=== PATIENT | male | born 1950 | race Caucasian/White ===

== ENCOUNTER 2020-10-04 17:20 | Inpatient (IN) | payer MEDICARE ==
[2020-10-04] MEDS ORDERED: Polyethylene Glycol 3350 17 GM Packet PO PRN (17:41)
[2020-10-04] MEDS ORDERED: Nicotine 7 MG PATCH TOP SCH (19:00)
[2020-10-04] MEDS: Nicotine 7 MG PATCH TOP SCH (20:53)
--- NOTE | 2020-10-04 21:28 | HP ---
PRIMARY CARE PHYSICIAN: Out of town. REASON FOR ADMISSION: Skilled rehab in [facility] after recent hospitalization. HISTORY OF PRESENT ILLNESS AND HOSPITAL COURSE: Mr. Smallwood is a 70-year-old male with significant history of chronic alcohol abuse, who presented to the ER on 09/28/2020 for abdominal pain and falling/imbalance. The patient reports that he has become weak and prone to falling lately prior to admission. He went to the outside ED on Wednesday after falling and was sent home and told nothing could be done. He was diagnosed with cirrhosis approximately 3 weeks ago and he does not have any specific medications for this. He has never had a paracentesis nor seen a GI doctor prior to this hospitalization. States that he noticed abdominal tenderness every now and then, over time prior to this admission. Associated symptoms include shortness of breath and cough as well as difficulty urinating, diarrhea over the last few days prior to admission. His initial home blood work in the ER showed sodium 127, total bilirubin 4.1, WBC 14, potassium 5.1, AST 84. Ammonia level 42. CT of his abdomen and pelvis revealed moderate ascites. Chest x-ray did not show any acute process and CT of the head showed chronic changes, but no acute findings. The patient was subsequently admitted for decompensated cirrhosis, fall and dizziness and hyponatremia in [facility] in [place]. He was seen by die cutter diamond and he underwent large volume paracentesis of 7 L. He was started on low-dose diuretics. The patient was reported to have signs of hypovolemia with worsening renal function and hyperkalemia that required IVF and albumin infusion which did resolve his hyperkalemia and subsequently improved his renal function. He was then restarted on a trial of diuretic as he is likely to accumulate his ascitic fluid. During his stay, he was also treated with empiric course of ceftriaxone, which was later stopped as fluid analysis was not suggestive of spontaneous bacterial peritonitis. The patient was deemed severely debilitated, thus recommended further rehab in [place] prior to going back home. When seen today, the patient was generally weak. He could hardly make steps from wheelchair to the bed. He denies chest pain, shortness of breath, or dyspnea on exertion. He is well aware that he is in [facility] bed for rehab and agreed on this. PAST MEDICAL HISTORY: 1. Chronic alcohol abuse. 2. Chronic tobacco use. 3. Recently diagnosed cirrhosis. 4. History of fall. PAST SURGICAL HISTORY: Recent paracentesis and fluid studies. SOCIAL HISTORY: The patient is single. He lives by himself in [place]. He reports daily use of beers about 15 a day. Smokes one pack per day for several years. Denies illicit drug use. ALLERGIES: TO NKDA. CURRENT MEDICATIONS: 1. Acetaminophen 650 mg q.4 hours p.r.n. 2. Furosemide 20 mg p.o. daily. 3. Nicoderm patch 14 mg per patch daily. 4. Pantoprazole 40 mg p.o. daily. 5. Polyethylene glycol 17 g p.o. daily p.r.n. 6. Spironolactone 25 mg p.o. daily. REVIEW OF SYSTEMS: GENERAL: Reports fatigue, general weakness, and loss of appetite. Denies fever and chills. HEENT: Denies acute visual changes or hearing changes. No cold symptoms. RESPIRATORY: Reports occasional cough. No bloody sputum. No pain with breathing or wheezing. CARDIAC: Denies chest pain, paroxysmal nocturnal dyspnea, palpitations, leg swelling. GASTROINTESTINAL: No nausea, vomiting, rectal bleeding, melena, hematochezia, hematemesis. Denies any diarrhea. Reports constipation and generalized abdominal pain and abdominal distention. GENITOURINARY: No dysuria, hematuria, frequency, urgency, incontinence. MUSCULOSKELETAL: Denies joint pain, joint stiffness, or myalgia. NEUROLOGIC: No focal numbness, focal weakness, seizures, tics, or tremors. SKIN: Denies pruritus or nonhealing ulcers. LABORATORY STUDIES: Recent blood work; WBC on 10/04/2020 was 11.6, hemoglobin 14, hematocrit 41.6, MCV 109, platelets 209. On 09/28/2020, INR 1.5, PT 18.3, APTT 38.6. On 09/13/2020, sodium 129, potassium 4.7, BUN 35, creatinine 1.10, estimated GFR 66, glucose 105, calcium 7.7. Urine negative on 09/28/2020. Serology: Hepatitis A and hepatitis B nonreactive. SARS-CoV-2 on 09/28/2020 not detected. 09/30/2020, paracentesis ultrasound showed successful therapeutic paracentesis with drainage of 7 L of ascites fluid, approximately 1.5 L ascites fluid sent to laboratory for analysis. ASSESSMENT AND PLAN: 1. Severe debility. 2. Decompensated cirrhosis. a. Status post paracentesis on 09/30/2020 of about 7 L. b.. Spontaneous bacterial peritonitis was ruled out. 4. Acute on chronic renal failure. 5. Hypoalbuminemia. 6. Hyponatremia, stable, asymptomatic. 7. Hyperkalemia, resolved. 8. History of chronic alcohol abuse.No withdrawal syndrome reported. 9. Tobacco abuse. 10. Unsteady gait. 11. History of fall. PLAN: 1. The patient is admitted to [facility] for rehab. 2. Refer to OT/PT. 3. Continue current medications as per list. 4. Serial electrolytes and renal function monitoring and possible adjustment of current diuretics depending on the electrolytes and kidney function. Continue close monitoring of hypovolemia and possible reaccumulation of ascitic fluid that may warrant repeat paracentesis. Will definitely report to GI as outpatient for followup. 4. GI prophylaxis with PPI. 5. DVT prophylaxis with SCD/compression stockings. 6. Further recommendations depending on the hospital course. CODE STATUS: The patient reports DNAR, which is consistent with hospital's code status. ESTIMATED LENGTH OF STAY: 2 to 3 weeks. DISPOSITION: Home per patient's request once appropriate. Job ID: [id number] [facility]
[2020-10-05 06:12] LABS: ALT (SGPT) 41 U/L (8-55); AST (SGOT) 72 U/L (5-34); Albumin 2.3 g/dL (3.4-4.8); Alkaline Phosphatase 121 U/L (40-110); Anion Gap 14 mmol/L (10-20); BUN (Urea Nitrogen) 38 mg/dL (8.4-25.7); Bilirubin, Total 2.2 mg/dL (0.2-1.2); Calc. Creatinine Clearance 39 mL/min (70-130); Calcium 7.7 mg/dL (7.8-10.44); Carbon Dioxide 19 mmol/L (23-31); Chloride 102 mmol/L (98-107); Globulin 4.3 g/dL (2.4-3.5); Glucose 118 mg/dL (80-115); Potassium 4.4 mmol/L (3.5-5.1); Protein, Total 6.6 g/dL (5.8-8.1); Sodium 131 mmol/L (136-145)
[2020-10-05] MEDS: Furosemide 20 MG TAB PO SCH (09:07)
[2020-10-05] MEDS: Spironolactone 25 MG TAB PO SCH (09:07)
[2020-10-05] MEDS: Enoxaparin Sodium 40 MG/0.4 ML SYRINGE SC SCH (20:27)
[2020-10-05] MEDS: Nicotine 7 MG PATCH TOP SCH (20:27)
[2020-10-06] MEDS: Furosemide 20 MG TAB PO SCH (09:13)
[2020-10-06] MEDS: Spironolactone 25 MG TAB PO SCH (09:13)
[2020-10-06] MEDS ORDERED: Zinc Oxide 20% Oint 30 GM TUBE TOP PRN (09:26)
[2020-10-06] MEDS: Enoxaparin Sodium 40 MG/0.4 ML SYRINGE SC SCH (20:29)
[2020-10-06] MEDS: Nicotine 7 MG PATCH TOP SCH (20:30)
[2020-10-07] MEDS: Furosemide 20 MG TAB PO SCH (08:25)
[2020-10-07] MEDS: Spironolactone 25 MG TAB PO SCH (08:25)
[2020-10-07] MEDS ORDERED: Mirtazapine 15 MG TAB PO SCH (13:30)
[2020-10-07] MEDS ORDERED: Multivitamin W/ Minerals 1 TAB PO SCH (13:30)
[2020-10-07] MEDS ORDERED: Thiamine 100 MG TAB PO SCH (13:30)
[2020-10-07] MEDS ORDERED: Folic Acid 1 MG TAB PO SCH (13:30)
[2020-10-07] MEDS ORDERED: Cyanocobalamin (Vitamin B-12) 1,000 MCG TAB PO SCH (13:30)
[2020-10-07 15:47] LABS: ALT (SGPT) 40 U/L (8-55); AST (SGOT) 69 U/L (5-34); Albumin 2.3 g/dL (3.4-4.8); Alkaline Phosphatase 95 U/L (40-110); Anion Gap 14 mmol/L (10-20); BUN (Urea Nitrogen) 55 mg/dL (8.4-25.7); Bilirubin, Total 2.9 mg/dL (0.2-1.2); Calc. Creatinine Clearance 23 mL/min (70-130); Calcium 7.5 mg/dL (7.8-10.44); Carbon Dioxide 19 mmol/L (23-31); Chloride 98 mmol/L (98-107); Globulin 4.5 g/dL (2.4-3.5); Glucose 118 mg/dL (80-115); Potassium 4.8 mmol/L (3.5-5.1); Protein, Total 6.8 g/dL (5.8-8.1); Sodium 126 mmol/L (136-145)
[2020-10-07 16:40] LABS: #Basophils 0.2 thou/uL (0.0-0.2); #Eosinphils 0.4 thou/uL (0.0-0.7); #Lymphocytes 4.2 thou/uL (1.20-3.40); #Monocytes 2.2 thou/uL (0.11-0.59); #Neutrophils 11.4 thou/uL (1.40-6.50); %Basophils 1.3 % (0.0-1.0); %Eosinophils 2.2 % (0.0-10.0); %Lymphocytes 22.5 % (21.0-51.0); %Monocytes 11.9 % (0.0-10.0); %Neutrophils 62.1 % (42.0-75.0); Anisocytosis SLIGHT = 6-15 cells (100X) (0-5/hpf); Hemoglobin 14.4 g/dL (14.0-18.0); MDiff Complete? YES; Macrocytosis SLIGHT = 6-15 cells (100X) (0-5/hpf); Mean Corpuscular HGB CONC 33.6 g/dL (32.0-36.0); Mean Corpuscular Hemoglobin 34.4 pg (27.0-31.0); Mean Corpuscular Volume 102.4 fL (78.0-98.0); Mean Platelet Volume 7.6 fL (7.4-10.4); Platelet Count 180 thou/uL (130-400); Platelet Morphology Comment Appears Adequate; RBC Distribution Width 13.5 % (11.5-14.5); Red Blood Cell (RBC) Count 4.19 mill/uL (4.70-6.10); Target Cells SLIGHT = 2-5 cells (100X) (0-1/hpf); White Blood Cell (WBC) Count 18.4 thou/uL (4.8-10.8)
[2020-10-07] MEDS ORDERED: Citalopram 20 MG TAB PO SCH (20:00)
[2020-10-07] MEDS: Enoxaparin Sodium 40 MG/0.4 ML SYRINGE SC SCH (21:05)
[2020-10-07] MEDS: Nicotine 7 MG PATCH TOP SCH (21:07)
[2020-10-07] MEDS: Mirtazapine 15 MG TAB PO SCH (21:07)
[2020-10-07] MEDS: Emollient 15 oz bottle 450 ML, Triamcinolone Acetonide 200 MG TOP PRN (21:19)
--- NOTE | 2020-10-08 07:48 | ULT ---
Sonogram abdomen complete HISTORY: Abdominal pain. No stones are apparent within the gallbladder lumen. Borderline wall thicken ing at 0.4 cm is nonspecific in the setting of diffuse ascites. Patient was reportedly tender over the entirety of the abdomen, including the gallbladder fossa. Common duct is 0.5 cm. Liver is diffusely echogenic with a nodular contour. Moderate amount of free fluid is present through out the abdomen. The spleen, kidneys, and visualized portions of abdominal aorta, IVC, and pancreas are unremarkable. IMPRESSION : Cirrhosis with moderate volume ascites. Hepato-steatosis. Diffuse abdominal tenderness. Cause not evident.
[2020-10-08] MEDS: Thiamine 100 MG TAB PO SCH (08:16)
[2020-10-08] MEDS: Multivitamin W/ Minerals 1 TAB PO SCH (08:16)
[2020-10-08] MEDS: Folic Acid 1 MG TAB PO SCH (08:17)
[2020-10-08] MEDS: Cyanocobalamin (Vitamin B-12) 1,000 MCG TAB PO SCH (08:17)
[2020-10-08 08:25] LABS: #Basophils 0.2 thou/uL (0.0-0.2); #Eosinphils 0.4 thou/uL (0.0-0.7); #Lymphocytes 4.8 thou/uL (1.20-3.40); #Monocytes 1.7 thou/uL (0.11-0.59); #Neutrophils 9.9 thou/uL (1.40-6.50); %Basophils 1.2 % (0.0-1.0); %Eosinophils 2.3 % (0.0-10.0); %Lymphocytes 28.1 % (21.0-51.0); %Monocytes 9.9 % (0.0-10.0); %Neutrophils 58.5 % (42.0-75.0); Hemoglobin 14.2 g/dL (14.0-18.0); Mean Corpuscular HGB CONC 32.1 g/dL (32.0-36.0); Mean Corpuscular Hemoglobin 33.6 pg (27.0-31.0); Mean Corpuscular Volume 104.7 fL (78.0-98.0); Platelet Count 203 thou/uL (130-400); RBC Distribution Width 13.8 % (11.5-14.5); Red Blood Cell (RBC) Count 4.23 mill/uL (4.70-6.10); White Blood Cell (WBC) Count 16.9 thou/uL (4.8-10.8)
[2020-10-08 08:49] LABS: ALT (SGPT) 41 U/L (8-55); AST (SGOT) 70 U/L (5-34); Albumin 2.4 g/dL (3.4-4.8); Alkaline Phosphatase 96 U/L (40-110); Anion Gap 15 mmol/L (10-20); BUN (Urea Nitrogen) 56 mg/dL (8.4-25.7); Bilirubin, Total 3.7 mg/dL (0.2-1.2); Calc. Creatinine Clearance 24 mL/min (70-130); Calcium 7.8 mg/dL (7.8-10.44); Carbon Dioxide 19 mmol/L (23-31); Chloride 101 mmol/L (98-107); Globulin 4.8 g/dL (2.4-3.5); Glucose 107 mg/dL (80-115); Potassium 4.7 mmol/L (3.5-5.1); Protein, Total 7.2 g/dL (5.8-8.1); Sodium 130 mmol/L (136-145)
[2020-10-08] MEDS ORDERED: Spironolactone 25 MG TAB PO SCH (12:45)
[2020-10-08] MEDS: Spironolactone 25 MG TAB PO SCH (12:56)
[2020-10-08] MEDS: Nicotine 7 MG PATCH TOP SCH (20:01)
[2020-10-08] MEDS: Enoxaparin Sodium 40 MG/0.4 ML SYRINGE SC SCH (20:01)
[2020-10-08] MEDS: Mirtazapine 15 MG TAB PO SCH (20:01)
[2020-10-09] MEDS: Multivitamin W/ Minerals 1 TAB PO SCH ×2 (08:21→13:15)
[2020-10-09] MEDS: Folic Acid 1 MG TAB PO SCH ×2 (08:21→13:14)
[2020-10-09] MEDS: Furosemide 20 MG TAB PO SCH ×2 (08:21→13:14)
[2020-10-09] MEDS: Cyanocobalamin (Vitamin B-12) 1,000 MCG TAB PO SCH ×2 (08:21→13:15)
[2020-10-09] MEDS: Thiamine 100 MG TAB PO SCH ×2 (09:12→13:15)
[2020-10-09] MEDS: Mirtazapine 15 MG TAB PO SCH (20:05)
[2020-10-09] MEDS: Enoxaparin Sodium 40 MG/0.4 ML SYRINGE SC SCH (20:05)
[2020-10-09] MEDS: Nicotine 7 MG PATCH TOP SCH (20:06)
[2020-10-10] MEDS: Thiamine 100 MG TAB PO SCH (09:22)
[2020-10-10] MEDS: Multivitamin W/ Minerals 1 TAB PO SCH (09:22)
[2020-10-10] MEDS: Furosemide 20 MG TAB PO SCH (09:22)
[2020-10-10] MEDS: Cyanocobalamin (Vitamin B-12) 1,000 MCG TAB PO SCH (09:22)
[2020-10-10] MEDS: Spironolactone 25 MG TAB PO SCH (09:22)
[2020-10-10] MEDS: Folic Acid 1 MG TAB PO SCH (09:22)
[2020-10-10] MEDS: Mirtazapine 15 MG TAB PO SCH (21:48)
[2020-10-10] MEDS: Enoxaparin Sodium 40 MG/0.4 ML SYRINGE SC SCH (21:48)
[2020-10-10] MEDS: Nicotine 7 MG PATCH TOP SCH (21:52)
[2020-10-11 07:55] LABS: Anion Gap 15 mmol/L (10-20); BUN (Urea Nitrogen) 42 mg/dL (8.4-25.7); Calc. Creatinine Clearance 27 mL/min (70-130); Calcium 7.6 mg/dL (7.8-10.44); Carbon Dioxide 19 mmol/L (23-31); Chloride 104 mmol/L (98-107); Glucose 120 mg/dL (80-115); Potassium 4.2 mmol/L (3.5-5.1); Sodium 134 mmol/L (136-145)
[2020-10-11 08:19] LABS: #Basophils 0.3 thou/uL (0.0-0.2); #Eosinphils 0.4 thou/uL (0.0-0.7); #Lymphocytes 3.8 thou/uL (1.20-3.40); #Monocytes 1.6 thou/uL (0.11-0.59); #Neutrophils 10.1 thou/uL (1.40-6.50); %Eosinophils 2.3 % (0.0-10.0); %Lymphocytes 23.6 % (21.0-51.0); %Monocytes 9.8 % (0.0-10.0); %Neutrophils 62.4 % (42.0-75.0); Eosinophils 3 % (0-10); Hemoglobin 13.9 g/dL (14.0-18.0); Lymphocytes 29 % (21-51); MDiff Complete? YES; Macrocytosis SLIGHT = 6-15 cells (100X) (0-5/hpf); Mean Corpuscular HGB CONC 33.5 g/dL (32.0-36.0); Mean Corpuscular Hemoglobin 34.6 pg (27.0-31.0); Mean Corpuscular Volume 103.3 fL (78.0-98.0); Mean Platelet Volume 7.5 fL (7.4-10.4); Monocytes 6 % (0-10); Neutrophil 62 % (42-75); Platelet Count 208 thou/uL (130-400); Platelet Morphology Comment Appears Adequate; RBC Distribution Width 13.5 % (11.5-14.5); Red Blood Cell (RBC) Count 4.02 mill/uL (4.70-6.10); Target Cells SLIGHT = 2-5 cells (100X) (0-1/hpf); White Blood Cell (WBC) Count 16.1 thou/uL (4.8-10.8)
[2020-10-11] MEDS: Cyanocobalamin (Vitamin B-12) 1,000 MCG TAB PO SCH (09:39)
[2020-10-11] MEDS: Spironolactone 25 MG TAB PO SCH (09:39)
[2020-10-11] MEDS: Multivitamin W/ Minerals 1 TAB PO SCH (09:40)
[2020-10-11] MEDS: Furosemide 20 MG TAB PO SCH (09:40)
[2020-10-11] MEDS: Folic Acid 1 MG TAB PO SCH (09:40)
[2020-10-11] MEDS: Thiamine 100 MG TAB PO SCH (09:40)
[2020-10-11] MEDS: Enoxaparin Sodium 40 MG/0.4 ML SYRINGE SC SCH (21:56)
[2020-10-11] MEDS: Nicotine 7 MG PATCH TOP SCH (21:57)
[2020-10-11] MEDS: Mirtazapine 15 MG TAB PO SCH (21:57)
[2020-10-12] MEDS: Thiamine 100 MG TAB PO SCH (09:07)
[2020-10-12] MEDS: Folic Acid 1 MG TAB PO SCH (09:07)
[2020-10-12] MEDS: Multivitamin W/ Minerals 1 TAB PO SCH (09:07)
[2020-10-12] MEDS: Furosemide 20 MG TAB PO SCH (09:07)
[2020-10-12] MEDS: Cyanocobalamin (Vitamin B-12) 1,000 MCG TAB PO SCH (09:07)
[2020-10-12] MEDS: Spironolactone 25 MG TAB PO SCH (09:08)
[2020-10-12] MEDS: Nicotine 7 MG PATCH TOP SCH (21:37)
[2020-10-12] MEDS: Mirtazapine 15 MG TAB PO SCH (21:37)
[2020-10-12] MEDS: Enoxaparin Sodium 40 MG/0.4 ML SYRINGE SC SCH (21:38)
[2020-10-13] MEDS: Folic Acid 1 MG TAB PO SCH (08:25)
[2020-10-13] MEDS: Thiamine 100 MG TAB PO SCH (08:25)
[2020-10-13] MEDS: Multivitamin W/ Minerals 1 TAB PO SCH (08:25)
[2020-10-13] MEDS: Spironolactone 25 MG TAB PO SCH (08:25)
[2020-10-13] MEDS: Furosemide 20 MG TAB PO SCH (08:25)
[2020-10-13] MEDS: Cyanocobalamin (Vitamin B-12) 1,000 MCG TAB PO SCH (08:25)
[2020-10-13] MEDS: Enoxaparin Sodium 40 MG/0.4 ML SYRINGE SC SCH (21:45)
[2020-10-13] MEDS: Mirtazapine 15 MG TAB PO SCH (21:45)
[2020-10-13] MEDS: Nicotine 7 MG PATCH TOP SCH (21:46)
[2020-10-14] MEDS: Cyanocobalamin (Vitamin B-12) 1,000 MCG TAB PO SCH (08:29)
[2020-10-14] MEDS: Multivitamin W/ Minerals 1 TAB PO SCH (08:30)
[2020-10-14] MEDS: Spironolactone 25 MG TAB PO SCH ×2 (08:30→17:55)
[2020-10-14] MEDS: Folic Acid 1 MG TAB PO SCH (08:30)
[2020-10-14] MEDS: Thiamine 100 MG TAB PO SCH (08:30)
[2020-10-14] MEDS: Furosemide 20 MG TAB PO SCH (08:30)
[2020-10-14] MEDS: Enoxaparin Sodium 40 MG/0.4 ML SYRINGE SC SCH (20:18)
[2020-10-14] MEDS: Nicotine 7 MG PATCH TOP SCH (20:18)
[2020-10-14] MEDS: Mirtazapine 15 MG TAB PO SCH (20:18)
[2020-10-15] MEDS: Emollient 15 oz bottle 450 ML, Triamcinolone Acetonide 200 MG TOP PRN (05:18)
[2020-10-15] MEDS: Thiamine 100 MG TAB PO SCH (08:18)
[2020-10-15] MEDS: Furosemide 20 MG TAB PO SCH (08:18)
[2020-10-15] MEDS: Multivitamin W/ Minerals 1 TAB PO SCH (08:18)
[2020-10-15] MEDS: Spironolactone 25 MG TAB PO SCH ×2 (08:18→17:15)
[2020-10-15] MEDS: Cyanocobalamin (Vitamin B-12) 1,000 MCG TAB PO SCH (08:18)
[2020-10-15] MEDS: Folic Acid 1 MG TAB PO SCH (08:18)
[2020-10-15 10:13] LABS: #Basophils 0.2 thou/uL (0.0-0.2); #Eosinphils 0.3 thou/uL (0.0-0.7); #Lymphocytes 4.2 thou/uL (1.20-3.40); #Monocytes 0.6 thou/uL (0.11-0.59); #Neutrophils 9.5 thou/uL (1.40-6.50); %Basophils 1.1 % (0.0-1.0); %Eosinophils 2.1 % (0.0-10.0); %Lymphocytes 28.6 % (21.0-51.0); %Monocytes 3.8 % (0.0-10.0); %Neutrophils 64.5 % (42.0-75.0); Anisocytosis SLIGHT = 6-15 cells (100X) (0-5/hpf); Hemoglobin 14.3 g/dL (14.0-18.0); Hypochromia SLIGHT = 6-15 cells (100X) (0-5/hpf); MDiff Complete? YES; Macrocytosis SLIGHT = 6-15 cells (100X) (0-5/hpf); Mean Corpuscular HGB CONC 33.7 g/dL (32.0-36.0); Mean Corpuscular Hemoglobin 34.4 pg (27.0-31.0); Mean Corpuscular Volume 102.1 fL (78.0-98.0); Mean Platelet Volume 7.1 fL (7.4-10.4); Platelet Count 241 thou/uL (130-400); Platelet Morphology Comment Appears Adequate; RBC Distribution Width 13.5 % (11.5-14.5); Red Blood Cell (RBC) Count 4.15 mill/uL (4.70-6.10); Target Cells SLIGHT = 2-5 cells (100X) (0-1/hpf); White Blood Cell (WBC) Count 14.8 thou/uL (4.8-10.8)
[2020-10-15 10:34] LABS: Anion Gap 17 mmol/L (10-20); BUN (Urea Nitrogen) 45 mg/dL (8.4-25.7); Calc. Creatinine Clearance 30 mL/min (70-130); Carbon Dioxide 15 mmol/L (23-31); Chloride 106 mmol/L (98-107); Glucose 159 mg/dL (80-115); Potassium 4.8 mmol/L (3.5-5.1); Sodium 133 mmol/L (136-145)
[2020-10-15] MEDS: Enoxaparin Sodium 40 MG/0.4 ML SYRINGE SC SCH (20:23)
[2020-10-15] MEDS: Mirtazapine 15 MG TAB PO SCH (20:24)
[2020-10-15] MEDS: Nicotine 7 MG PATCH TOP SCH (20:24)
[2020-10-15] MEDS: Acetaminophen 325 MG TAB PO PRN (20:25)
[2020-10-16] MEDS: Folic Acid 1 MG TAB PO SCH (08:28)
[2020-10-16] MEDS: Cyanocobalamin (Vitamin B-12) 1,000 MCG TAB PO SCH (08:28)
[2020-10-16] MEDS: Multivitamin W/ Minerals 1 TAB PO SCH (08:28)
[2020-10-16] MEDS: Furosemide 20 MG TAB PO SCH (08:28)
[2020-10-16] MEDS: Thiamine 100 MG TAB PO SCH (08:28)
[2020-10-16] MEDS: Spironolactone 25 MG TAB PO SCH ×2 (08:28→16:38)
[2020-10-16] MEDS: Acetaminophen 325 MG TAB PO PRN (18:30)
[2020-10-16] MEDS: Enoxaparin Sodium 40 MG/0.4 ML SYRINGE SC SCH (20:34)
[2020-10-16] MEDS: Mirtazapine 15 MG TAB PO SCH (20:35)
[2020-10-16] MEDS: Nicotine 7 MG PATCH TOP SCH (20:43)
[2020-10-17] MEDS: Spironolactone 25 MG TAB PO SCH ×2 (08:26→17:08)
[2020-10-17] MEDS: Furosemide 20 MG TAB PO SCH (08:27)
[2020-10-17] MEDS: Folic Acid 1 MG TAB PO SCH (08:27)
[2020-10-17] MEDS: Thiamine 100 MG TAB PO SCH (08:27)
[2020-10-17] MEDS: Cyanocobalamin (Vitamin B-12) 1,000 MCG TAB PO SCH (08:27)
[2020-10-17] MEDS: Multivitamin W/ Minerals 1 TAB PO SCH (08:27)
[2020-10-17] MEDS: Acetaminophen 325 MG TAB PO PRN (11:58)
[2020-10-17] MEDS: Mirtazapine 15 MG TAB PO SCH (19:58)
[2020-10-17] MEDS: Enoxaparin Sodium 40 MG/0.4 ML SYRINGE SC SCH (20:00)
[2020-10-17] MEDS: Nicotine 7 MG PATCH TOP SCH (20:05)
[2020-10-18] MEDS: Spironolactone 25 MG TAB PO SCH ×2 (08:57→17:15)
[2020-10-18] MEDS: Thiamine 100 MG TAB PO SCH (08:57)
[2020-10-18] MEDS: Furosemide 20 MG TAB PO SCH (08:57)
[2020-10-18] MEDS: Folic Acid 1 MG TAB PO SCH (08:58)
[2020-10-18] MEDS: Multivitamin W/ Minerals 1 TAB PO SCH (08:58)
[2020-10-18] MEDS: Cyanocobalamin (Vitamin B-12) 1,000 MCG TAB PO SCH (08:58)
[2020-10-18] MEDS: Nicotine 7 MG PATCH TOP SCH (20:15)
[2020-10-18] MEDS: Mirtazapine 15 MG TAB PO SCH (20:15)
[2020-10-18] MEDS: Enoxaparin Sodium 40 MG/0.4 ML SYRINGE SC SCH (20:16)
[2020-10-19] MEDS: Spironolactone 25 MG TAB PO SCH ×2 (08:36→17:05)
[2020-10-19] MEDS: Folic Acid 1 MG TAB PO SCH (08:36)
[2020-10-19] MEDS: Thiamine 100 MG TAB PO SCH (08:36)
[2020-10-19] MEDS: Furosemide 20 MG TAB PO SCH (08:36)
[2020-10-19] MEDS: Cyanocobalamin (Vitamin B-12) 1,000 MCG TAB PO SCH (08:36)
[2020-10-19] MEDS: Multivitamin W/ Minerals 1 TAB PO SCH (08:36)
[2020-10-19] MEDS: Nicotine 7 MG PATCH TOP SCH (20:40)
[2020-10-19] MEDS: Enoxaparin Sodium 40 MG/0.4 ML SYRINGE SC SCH (20:41)
[2020-10-19] MEDS: Mirtazapine 15 MG TAB PO SCH (20:41)
[2020-10-20] MEDS: Acetaminophen 325 MG TAB PO PRN ×3 (01:39→19:38)
[2020-10-20] MEDS: Spironolactone 25 MG TAB PO SCH ×2 (09:00→16:47)
[2020-10-20] MEDS: Furosemide 20 MG TAB PO SCH (09:01)
[2020-10-20] MEDS: Cyanocobalamin (Vitamin B-12) 1,000 MCG TAB PO SCH (09:01)
[2020-10-20] MEDS: Multivitamin W/ Minerals 1 TAB PO SCH (09:01)
[2020-10-20] MEDS: Thiamine 100 MG TAB PO SCH (09:01)
[2020-10-20] MEDS: Folic Acid 1 MG TAB PO SCH (09:01)
[2020-10-20] MEDS: Nicotine 7 MG PATCH TOP SCH (20:07)
[2020-10-20] MEDS: Mirtazapine 15 MG TAB PO SCH (20:07)
[2020-10-20] MEDS: Enoxaparin Sodium 40 MG/0.4 ML SYRINGE SC SCH (20:10)
[2020-10-21] MEDS: Acetaminophen 325 MG TAB PO PRN ×2 (05:27→19:49)
[2020-10-21 06:35] LABS: ALT (SGPT) 27 U/L (8-55); AST (SGOT) 50 U/L (5-34); Albumin 2.1 g/dL (3.4-4.8); Alkaline Phosphatase 103 U/L (40-110); Anion Gap 13 mmol/L (10-20); BUN (Urea Nitrogen) 36 mg/dL (8.4-25.7); Bilirubin, Total 1.4 mg/dL (0.2-1.2); Calc. Creatinine Clearance 39 mL/min (70-130); Calcium 7.9 mg/dL (7.8-10.44); Carbon Dioxide 19 mmol/L (23-31); Chloride 109 mmol/L (98-107); Glucose 105 mg/dL (80-115); Protein, Total 6.1 g/dL (5.8-8.1); Sodium 136 mmol/L (136-145)
[2020-10-21 07:10] LABS: Hemoglobin 12.9 g/dL (14.0-18.0); Mean Corpuscular HGB CONC 32.6 g/dL (32.0-36.0); Mean Corpuscular Hemoglobin 33.8 pg (27.0-31.0); Red Blood Cell (RBC) Count 3.81 mill/uL (4.70-6.10); White Blood Cell (WBC) Count 13.1 thou/uL (4.8-10.8)
[2020-10-21 07:11] LABS: #Basophils 0.3 thou/uL (0.0-0.2); #Eosinphils 0.5 thou/uL (0.0-0.7); #Monocytes 1.7 thou/uL (0.11-0.59); #Neutrophils 5.7 thou/uL (1.40-6.50); %Basophils 1.9 % (0.0-1.0); %Eosinophils 3.7 % (0.0-10.0); %Monocytes 12.9 % (0.0-10.0); %Neutrophils 43.5 % (42.0-75.0); Mean Platelet Volume 6.7 fL (7.4-10.4); Platelet Count 288 thou/uL (130-400); RBC Distribution Width 14.2 % (11.5-14.5)
[2020-10-21 07:13] LABS: Anisocytosis SLIGHT = 6-15 cells (100X) (0-5/hpf); Macrocytosis SLIGHT = 6-15 cells (100X) (0-5/hpf); Poikilocytosis SLIGHT = 6-15 cells (100X) (0-5/hpf)
[2020-10-21 07:14] LABS: Platelet Morphology Comment Appears Adequate; Target Cells SLIGHT = 2-5 cells (100X) (0-1/hpf)
[2020-10-21] MEDS: Cyanocobalamin (Vitamin B-12) 1,000 MCG TAB PO SCH (08:14)
[2020-10-21] MEDS: Thiamine 100 MG TAB PO SCH (08:14)
[2020-10-21] MEDS: Multivitamin W/ Minerals 1 TAB PO SCH (08:14)
[2020-10-21] MEDS: Furosemide 20 MG TAB PO SCH (08:14)
[2020-10-21] MEDS: Folic Acid 1 MG TAB PO SCH (08:14)
[2020-10-21] MEDS: Spironolactone 25 MG TAB PO SCH ×2 (08:14→17:30)
[2020-10-21] MEDS: Nicotine 7 MG PATCH TOP SCH (20:11)
[2020-10-21] MEDS: Mirtazapine 15 MG TAB PO SCH (20:11)
[2020-10-22] MEDS: Spironolactone 25 MG TAB PO SCH ×2 (08:14→17:23)
[2020-10-22] MEDS: Folic Acid 1 MG TAB PO SCH (08:14)
[2020-10-22] MEDS: Cyanocobalamin (Vitamin B-12) 1,000 MCG TAB PO SCH (08:14)
[2020-10-22] MEDS: Multivitamin W/ Minerals 1 TAB PO SCH (08:14)
[2020-10-22] MEDS: Furosemide 20 MG TAB PO SCH (08:14)
[2020-10-22] MEDS: Thiamine 100 MG TAB PO SCH (08:14)
[2020-10-22] MEDS: Acetaminophen 325 MG TAB PO PRN ×2 (15:37→20:23)
--- NOTE | 2020-10-22 18:38 | PRG ---
DATE OF SERVICE: 10/22/2020 SUBJECTIVE: The patient was seen and examined at the bedside in no distress. He does report continued abdominal pain related to abdominal distention from ascites. Otherwise, denies any fevers or chills. Denies chest pain or shortness of breath. OBJECTIVE: VITAL SIGNS: Temperature 97.9, pulse 93, respirations 16, oxygen 97% on room air, blood pressure 130/69. GENERAL: The patient is alert and oriented x3, in no apparent distress. The patient is chronically ill-appearing. HEENT: Normocephalic, atraumatic. Extraocular muscles intact. Moist mucous membranes. CARDIOVASCULAR: Regular rate and rhythm. No murmurs, rubs, or gallops. LUNGS: Clear to auscultation bilaterally. No crackles, wheezes, rhonchi. ABDOMEN: Soft, very very significant/severe distention. Mild tenderness to palpation. No rebound tenderness. No guarding. EXTREMITIES: Decreased bulk and tone. NEUROLOGIC: Cranial nerves 2-12 intact grossly. PSYCHIATRIC: The patient does appear to have depressed mood. Answers questions appropriately. Normal speech pattern. LABORATORY DATA: Labs complete metabolic panel, sodium 136, potassium 5.0, chloride 109, carbon dioxide 19, BUN 36, creatinine 1.39, glucose 105, bilirubin 1.4, AST 50. ASSESSMENT AND PLAN: 1. Physical deconditioning. 2. Decompensated cirrhosis with ascites. 3. [id number] renal failure. 4. Hypoalbuminemia. 5. History of chronic alcohol abuse. 6. Depression. PLAN: Regarding patient's decompensated cirrhosis with ascites, the patient is scheduled for ultrasound-guided paracentesis tomorrow. We will make him n.p.o. after 5:00 a.m. in preparation for this procedure. We will also plan to administer albumin as needed. We will continue Lasix and spironolactone. We will also check a comprehensive metabolic panel routinely in order to assess for metabolic derangements. Regarding patient's history of depression, we will plan to increase mirtazapine which will hopefully also help with his appetite. We will continue multivitamins to assist with the patient's malnutrition from chronic alcohol use. Continue physical therapy for patient's physical debility. The patient ultimately would like to go home, however, did mention the possibility of being admitted to assisted living facility. We will monitor this. Job ID: [id number]
[2020-10-22] MEDS: Mirtazapine 15 MG TAB PO SCH (20:15)
[2020-10-22] MEDS: Nicotine 7 MG PATCH TOP SCH (20:15)
[2020-10-23 07:17] LABS: ALT (SGPT) 20 U/L (8-55); AST (SGOT) 37 U/L (5-34); Albumin 2.4 g/dL (3.4-4.8); Alkaline Phosphatase 70 U/L (40-110); Anion Gap 13 mmol/L (10-20); BUN (Urea Nitrogen) 33 mg/dL (8.4-25.7); Bilirubin, Total 1.7 mg/dL (0.2-1.2); Calc. Creatinine Clearance 43 mL/min (70-130); Carbon Dioxide 19 mmol/L (23-31); Chloride 109 mmol/L (98-107); Globulin 3.3 g/dL (2.4-3.5); Glucose 105 mg/dL (80-115); Potassium 5.1 mmol/L (3.5-5.1); Protein, Total 5.7 g/dL (5.8-8.1); Sodium 136 mmol/L (136-145)
[2020-10-23] MEDS: Folic Acid 1 MG TAB PO SCH (09:39)
[2020-10-23] MEDS: Spironolactone 25 MG TAB PO SCH ×2 (09:39→17:21)
[2020-10-23] MEDS: Cyanocobalamin (Vitamin B-12) 1,000 MCG TAB PO SCH (09:39)
[2020-10-23] MEDS: Thiamine 100 MG TAB PO SCH (09:39)
[2020-10-23] MEDS: Multivitamin W/ Minerals 1 TAB PO SCH (09:39)
[2020-10-23] MEDS: Acetaminophen 325 MG TAB PO PRN ×2 (09:39→17:21)
[2020-10-23] MEDS: Furosemide 20 MG TAB PO SCH (09:39)
[2020-10-23] MEDS: Nicotine 7 MG PATCH TOP SCH (20:16)
[2020-10-23] MEDS: Mirtazapine 15 MG TAB PO SCH (20:16)
[2020-10-24] MEDS: Spironolactone 25 MG TAB PO SCH ×2 (08:16→17:26)
[2020-10-24] MEDS: Acetaminophen 325 MG TAB PO PRN ×2 (08:16→20:46)
[2020-10-24] MEDS: Cyanocobalamin (Vitamin B-12) 1,000 MCG TAB PO SCH (08:17)
[2020-10-24] MEDS: Folic Acid 1 MG TAB PO SCH (08:17)
[2020-10-24] MEDS: Furosemide 20 MG TAB PO SCH (08:17)
[2020-10-24] MEDS: Thiamine 100 MG TAB PO SCH (08:17)
[2020-10-24] MEDS: Multivitamin W/ Minerals 1 TAB PO SCH (08:17)
[2020-10-24] MEDS: Nicotine 7 MG PATCH TOP SCH (20:47)
[2020-10-24] MEDS: Mirtazapine 15 MG TAB PO SCH (20:47)
[2020-10-25] MEDS: Cyanocobalamin (Vitamin B-12) 1,000 MCG TAB PO SCH (08:47)
[2020-10-25] MEDS: Furosemide 20 MG TAB PO SCH (08:47)
[2020-10-25] MEDS: Thiamine 100 MG TAB PO SCH (08:47)
[2020-10-25] MEDS: Folic Acid 1 MG TAB PO SCH (08:47)
[2020-10-25] MEDS: Spironolactone 25 MG TAB PO SCH ×2 (08:47→17:15)
[2020-10-25] MEDS: Multivitamin W/ Minerals 1 TAB PO SCH (08:47)
[2020-10-25] MEDS: Mirtazapine 15 MG TAB PO SCH (20:11)
[2020-10-25] MEDS: Nicotine 7 MG PATCH TOP SCH (20:12)
[2020-10-25] MEDS: Emollient 15 oz bottle 450 ML, Triamcinolone Acetonide 200 MG TOP PRN (20:16)
[2020-10-25] MEDS: Acetaminophen 325 MG TAB PO PRN (23:21)
[2020-10-26] MEDS: Folic Acid 1 MG TAB PO SCH (08:16)
[2020-10-26] MEDS: Cyanocobalamin (Vitamin B-12) 1,000 MCG TAB PO SCH (08:16)
[2020-10-26] MEDS: Thiamine 100 MG TAB PO SCH (08:16)
[2020-10-26] MEDS: Furosemide 20 MG TAB PO SCH (08:16)
[2020-10-26] MEDS: Acetaminophen 325 MG TAB PO PRN ×2 (08:17→18:48)
[2020-10-26] MEDS: Multivitamin W/ Minerals 1 TAB PO SCH (08:17)
[2020-10-26] MEDS: Spironolactone 25 MG TAB PO SCH ×2 (08:17→17:53)
[2020-10-26] MEDS: Emollient 15 oz bottle 450 ML, Triamcinolone Acetonide 200 MG TOP PRN (08:21)
[2020-10-26] MEDS: Mirtazapine 15 MG TAB PO SCH (21:15)
[2020-10-26] MEDS: Nicotine 7 MG PATCH TOP SCH (21:18)
[2020-10-27] MEDS: Multivitamin W/ Minerals 1 TAB PO SCH (08:25)
[2020-10-27] MEDS: Spironolactone 25 MG TAB PO SCH ×2 (08:25→17:10)
[2020-10-27] MEDS: Thiamine 100 MG TAB PO SCH (08:25)
[2020-10-27] MEDS: Folic Acid 1 MG TAB PO SCH (08:25)
[2020-10-27] MEDS: Furosemide 20 MG TAB PO SCH (08:25)
[2020-10-27] MEDS: Cyanocobalamin (Vitamin B-12) 1,000 MCG TAB PO SCH (08:25)
[2020-10-27] MEDS: Acetaminophen 325 MG TAB PO PRN ×3 (08:25→21:56)
[2020-10-27] MEDS: Emollient 15 oz bottle 450 ML, Triamcinolone Acetonide 200 MG TOP PRN (08:27)
[2020-10-27] MEDS: Mirtazapine 15 MG TAB PO SCH (21:01)
[2020-10-27] MEDS: Nicotine 7 MG PATCH TOP SCH (21:02)
[2020-10-28] MEDS: Multivitamin W/ Minerals 1 TAB PO SCH (08:11)
[2020-10-28] MEDS: Furosemide 20 MG TAB PO SCH (08:11)
[2020-10-28] MEDS: Folic Acid 1 MG TAB PO SCH (08:11)
[2020-10-28] MEDS: Cyanocobalamin (Vitamin B-12) 1,000 MCG TAB PO SCH (08:11)
[2020-10-28] MEDS: Spironolactone 25 MG TAB PO SCH ×2 (08:11→17:06)
[2020-10-28] MEDS: Thiamine 100 MG TAB PO SCH (08:12)
[2020-10-28] MEDS: Acetaminophen 325 MG TAB PO PRN (18:37)
[2020-10-28] MEDS: Nicotine 7 MG PATCH TOP SCH (20:23)
[2020-10-28] MEDS: Mirtazapine 15 MG TAB PO SCH (20:23)
[2020-10-29] MEDS: Acetaminophen 325 MG TAB PO PRN ×3 (03:53→23:24)
[2020-10-29] MEDS: Spironolactone 25 MG TAB PO SCH ×2 (08:35→17:23)
[2020-10-29] MEDS: Furosemide 20 MG TAB PO SCH (08:36)
[2020-10-29] MEDS: Thiamine 100 MG TAB PO SCH (08:36)
[2020-10-29] MEDS: Folic Acid 1 MG TAB PO SCH (08:36)
[2020-10-29] MEDS: Cyanocobalamin (Vitamin B-12) 1,000 MCG TAB PO SCH (08:36)
[2020-10-29] MEDS: Multivitamin W/ Minerals 1 TAB PO SCH (08:36)
[2020-10-29] MEDS: Mirtazapine 15 MG TAB PO SCH (20:34)
[2020-10-29] MEDS: Nicotine 7 MG PATCH TOP SCH (21:00)
[2020-10-30] MEDS: Spironolactone 25 MG TAB PO SCH ×2 (08:31→17:10)
[2020-10-30] MEDS: Multivitamin W/ Minerals 1 TAB PO SCH (08:32)
[2020-10-30] MEDS: Cyanocobalamin (Vitamin B-12) 1,000 MCG TAB PO SCH (08:32)
[2020-10-30] MEDS: Folic Acid 1 MG TAB PO SCH (08:32)
[2020-10-30] MEDS: Thiamine 100 MG TAB PO SCH (08:32)
[2020-10-30] MEDS: Furosemide 20 MG TAB PO SCH (08:32)
[2020-10-30] MEDS: Acetaminophen 325 MG TAB PO PRN ×3 (08:38→20:35)
[2020-10-30] MEDS: Mirtazapine 15 MG TAB PO SCH (20:36)
[2020-10-30] MEDS: Nicotine 7 MG PATCH TOP SCH (20:39)
[2020-10-31 06:16] LABS: INR-International Normal Ratio 1.3; PTT 39.5 sec (22.9-36.1)
[2020-10-31] MEDS: Spironolactone 25 MG TAB PO SCH ×2 (08:42→17:28)
[2020-10-31] MEDS: Folic Acid 1 MG TAB PO SCH (08:42)
[2020-10-31] MEDS: Furosemide 20 MG TAB PO SCH (08:42)
[2020-10-31] MEDS: Thiamine 100 MG TAB PO SCH (08:42)
[2020-10-31] MEDS: Cyanocobalamin (Vitamin B-12) 1,000 MCG TAB PO SCH (08:42)
[2020-10-31] MEDS: Multivitamin W/ Minerals 1 TAB PO SCH (08:43)
[2020-10-31] MEDS: Acetaminophen 325 MG TAB PO PRN ×2 (10:48→20:11)
[2020-10-31] MEDS: Nicotine 7 MG PATCH TOP SCH (20:09)
[2020-10-31] MEDS: Mirtazapine 15 MG TAB PO SCH (20:11)
[2020-11-01] MEDS: Acetaminophen 325 MG TAB PO PRN ×2 (05:23→19:43)
[2020-11-01 05:36] LABS: Anion Gap 12 mmol/L (10-20); BUN (Urea Nitrogen) 31 mg/dL (8.4-25.7); Calc. Creatinine Clearance 52 mL/min (70-130); Carbon Dioxide 19 mmol/L (23-31); Chloride 112 mmol/L (98-107); Glucose 117 mg/dL (80-115); Potassium 4.4 mmol/L (3.5-5.1); Sodium 139 mmol/L (136-145)
[2020-11-01] MEDS: Furosemide 20 MG TAB PO SCH (08:17)
[2020-11-01] MEDS: Cyanocobalamin (Vitamin B-12) 1,000 MCG TAB PO SCH (08:17)
[2020-11-01] MEDS: Spironolactone 25 MG TAB PO SCH ×2 (08:17→17:07)
[2020-11-01] MEDS: Thiamine 100 MG TAB PO SCH (08:17)
[2020-11-01] MEDS: Multivitamin W/ Minerals 1 TAB PO SCH (08:17)
[2020-11-01] MEDS: Folic Acid 1 MG TAB PO SCH (08:17)
[2020-11-01] MEDS: Mirtazapine 15 MG TAB PO SCH (21:15)
[2020-11-01] MEDS: Nicotine 7 MG PATCH TOP SCH (21:16)
[2020-11-02] MEDS: Thiamine 100 MG TAB PO SCH (09:02)
[2020-11-02] MEDS: Multivitamin W/ Minerals 1 TAB PO SCH (09:02)
[2020-11-02] MEDS: Furosemide 20 MG TAB PO SCH (09:02)
[2020-11-02] MEDS: Spironolactone 25 MG TAB PO SCH ×2 (09:02→17:21)
[2020-11-02] MEDS: Folic Acid 1 MG TAB PO SCH (09:02)
[2020-11-02] MEDS: Cyanocobalamin (Vitamin B-12) 1,000 MCG TAB PO SCH (09:02)
[2020-11-02] MEDS: Acetaminophen 325 MG TAB PO PRN ×2 (09:15→20:03)
[2020-11-02] MEDS: Nicotine 7 MG PATCH TOP SCH (20:05)
[2020-11-02] MEDS: Mirtazapine 15 MG TAB PO SCH (20:05)
[2020-11-03] MEDS: Acetaminophen 325 MG TAB PO PRN ×4 (01:12→23:20)
[2020-11-03] MEDS: Cyanocobalamin (Vitamin B-12) 1,000 MCG TAB PO SCH (08:13)
[2020-11-03] MEDS: Multivitamin W/ Minerals 1 TAB PO SCH (08:13)
[2020-11-03] MEDS: Spironolactone 25 MG TAB PO SCH ×2 (08:13→17:22)
[2020-11-03] MEDS: Furosemide 20 MG TAB PO SCH (08:13)
[2020-11-03] MEDS: Folic Acid 1 MG TAB PO SCH (08:14)
[2020-11-03] MEDS: Thiamine 100 MG TAB PO SCH (08:14)
[2020-11-03] MEDS: Mirtazapine 15 MG TAB PO SCH (20:01)
[2020-11-03] MEDS: Nicotine 7 MG PATCH TOP SCH (20:01)
[2020-11-04] MEDS: Folic Acid 1 MG TAB PO SCH (08:56)
[2020-11-04] MEDS: Spironolactone 25 MG TAB PO SCH ×2 (08:56→17:27)
[2020-11-04] MEDS: Furosemide 20 MG TAB PO SCH (08:56)
[2020-11-04] MEDS: Cyanocobalamin (Vitamin B-12) 1,000 MCG TAB PO SCH (08:56)
[2020-11-04] MEDS: Multivitamin W/ Minerals 1 TAB PO SCH (08:56)
[2020-11-04] MEDS: Thiamine 100 MG TAB PO SCH (08:56)
[2020-11-04] MEDS: Nicotine 7 MG PATCH TOP SCH (20:39)
[2020-11-04] MEDS: Acetaminophen 325 MG TAB PO PRN (20:40)
[2020-11-04] MEDS: Mirtazapine 15 MG TAB PO SCH (20:42)
[2020-11-05] MEDS ORDERED: Ibuprofen 600 MG TAB PO SCH (06:45)
[2020-11-05] MEDS: Spironolactone 25 MG TAB PO SCH ×2 (08:42→16:48)
[2020-11-05] MEDS: Cyanocobalamin (Vitamin B-12) 1,000 MCG TAB PO SCH (08:43)
[2020-11-05] MEDS: Multivitamin W/ Minerals 1 TAB PO SCH (08:43)
[2020-11-05] MEDS: Thiamine 100 MG TAB PO SCH (08:43)
[2020-11-05] MEDS: Furosemide 20 MG TAB PO SCH (08:43)
[2020-11-05] MEDS: Folic Acid 1 MG TAB PO SCH (08:43)
[2020-11-05] MEDS: Acetaminophen 325 MG TAB PO PRN (20:21)
[2020-11-05] MEDS: Mirtazapine 15 MG TAB PO SCH (20:21)
[2020-11-05] MEDS: Nicotine 7 MG PATCH TOP SCH (20:21)
[2020-11-06] MEDS: Folic Acid 1 MG TAB PO SCH (08:40)
[2020-11-06] MEDS: Thiamine 100 MG TAB PO SCH (08:40)
[2020-11-06] MEDS: Spironolactone 25 MG TAB PO SCH ×2 (08:40→17:18)
[2020-11-06] MEDS: Cyanocobalamin (Vitamin B-12) 1,000 MCG TAB PO SCH (08:40)
[2020-11-06] MEDS: Multivitamin W/ Minerals 1 TAB PO SCH (08:40)
[2020-11-06] MEDS: Furosemide 20 MG TAB PO SCH (08:41)
[2020-11-06] MEDS: Mirtazapine 15 MG TAB PO SCH (20:59)
[2020-11-06] MEDS: Nicotine 7 MG PATCH TOP SCH (21:03)
[2020-11-06] MEDS: Acetaminophen 325 MG TAB PO PRN (21:11)
[2020-11-07] MEDS: Folic Acid 1 MG TAB PO SCH (08:44)
[2020-11-07] MEDS: Cyanocobalamin (Vitamin B-12) 1,000 MCG TAB PO SCH (08:44)
[2020-11-07] MEDS: Spironolactone 25 MG TAB PO SCH ×2 (08:44→17:16)
[2020-11-07] MEDS: Furosemide 20 MG TAB PO SCH (08:45)
[2020-11-07] MEDS: Thiamine 100 MG TAB PO SCH (08:45)
[2020-11-07] MEDS: Multivitamin W/ Minerals 1 TAB PO SCH (08:45)
[2020-11-07] MEDS: Acetaminophen 325 MG TAB PO PRN ×2 (15:11→22:35)
[2020-11-07] MEDS: Mirtazapine 15 MG TAB PO SCH (20:24)
[2020-11-07] MEDS: Nicotine 7 MG PATCH TOP SCH (20:24)
[2020-11-08] MEDS: Acetaminophen 325 MG TAB PO PRN ×3 (09:07→21:09)
[2020-11-08] MEDS: Spironolactone 25 MG TAB PO SCH ×2 (09:07→17:58)
[2020-11-08] MEDS: Thiamine 100 MG TAB PO SCH (09:08)
[2020-11-08] MEDS: Cyanocobalamin (Vitamin B-12) 1,000 MCG TAB PO SCH (09:08)
[2020-11-08] MEDS: Multivitamin W/ Minerals 1 TAB PO SCH (09:08)
[2020-11-08] MEDS: Furosemide 20 MG TAB PO SCH (09:08)
[2020-11-08] MEDS: Folic Acid 1 MG TAB PO SCH (09:08)
[2020-11-08] MEDS: Emollient 15 oz bottle 450 ML, Triamcinolone Acetonide 200 MG TOP PRN ×2 (09:11→21:22)
[2020-11-08] MEDS: Nicotine 7 MG PATCH TOP SCH (21:08)
[2020-11-08] MEDS: Mirtazapine 15 MG TAB PO SCH (21:08)
[2020-11-09] MEDS: Spironolactone 25 MG TAB PO SCH ×2 (08:27→16:50)
[2020-11-09] MEDS: Furosemide 20 MG TAB PO SCH (08:27)
[2020-11-09] MEDS: Cyanocobalamin (Vitamin B-12) 1,000 MCG TAB PO SCH (08:27)
[2020-11-09] MEDS: Multivitamin W/ Minerals 1 TAB PO SCH (08:27)
[2020-11-09] MEDS: Thiamine 100 MG TAB PO SCH (08:27)
[2020-11-09] MEDS: Folic Acid 1 MG TAB PO SCH (08:27)
[2020-11-09] MEDS: Acetaminophen 325 MG TAB PO PRN ×2 (11:46→21:56)
[2020-11-09] MEDS: Nicotine 7 MG PATCH TOP SCH (21:55)
[2020-11-09] MEDS: Mirtazapine 15 MG TAB PO SCH (21:56)
[2020-11-10] MEDS: Multivitamin W/ Minerals 1 TAB PO SCH (08:17)
[2020-11-10] MEDS: Spironolactone 25 MG TAB PO SCH ×2 (08:17→16:56)
[2020-11-10] MEDS: Folic Acid 1 MG TAB PO SCH (08:17)
[2020-11-10] MEDS: Thiamine 100 MG TAB PO SCH (08:17)
[2020-11-10] MEDS: Furosemide 20 MG TAB PO SCH (08:17)
[2020-11-10] MEDS: Cyanocobalamin (Vitamin B-12) 1,000 MCG TAB PO SCH (08:17)
[2020-11-10] MEDS: Acetaminophen 325 MG TAB PO PRN ×2 (15:03→20:56)
[2020-11-10] MEDS: Mirtazapine 15 MG TAB PO SCH (20:55)
[2020-11-10] MEDS: Nicotine 7 MG PATCH TOP SCH (20:55)
[2020-11-11] MEDS: Thiamine 100 MG TAB PO SCH (08:11)
[2020-11-11] MEDS: Folic Acid 1 MG TAB PO SCH (08:11)
[2020-11-11] MEDS: Furosemide 20 MG TAB PO SCH (08:11)
[2020-11-11] MEDS: Spironolactone 25 MG TAB PO SCH ×2 (08:11→17:15)
[2020-11-11] MEDS: Acetaminophen 325 MG TAB PO PRN ×3 (08:12→21:24)
[2020-11-11] MEDS: Cyanocobalamin (Vitamin B-12) 1,000 MCG TAB PO SCH (08:12)
[2020-11-11] MEDS: Multivitamin W/ Minerals 1 TAB PO SCH (08:12)
[2020-11-11] MEDS: Nicotine 7 MG PATCH TOP SCH (21:24)
[2020-11-11] MEDS: Mirtazapine 15 MG TAB PO SCH (21:26)
[2020-11-12] MEDS: Thiamine 100 MG TAB PO SCH (08:40)
[2020-11-12] MEDS: Folic Acid 1 MG TAB PO SCH (08:40)
[2020-11-12] MEDS: Spironolactone 25 MG TAB PO SCH ×2 (08:40→16:53)
[2020-11-12] MEDS: Cyanocobalamin (Vitamin B-12) 1,000 MCG TAB PO SCH (08:40)
[2020-11-12] MEDS: Furosemide 20 MG TAB PO SCH (08:40)
[2020-11-12] MEDS: Multivitamin W/ Minerals 1 TAB PO SCH (08:40)
[2020-11-12] MEDS: Mirtazapine 15 MG TAB PO SCH (20:52)
[2020-11-12] MEDS: Nicotine 7 MG PATCH TOP SCH (20:52)
[2020-11-12] MEDS: Acetaminophen 325 MG TAB PO PRN (20:54)
[2020-11-13] MEDS: Spironolactone 25 MG TAB PO SCH ×2 (08:16→16:59)
[2020-11-13] MEDS: Multivitamin W/ Minerals 1 TAB PO SCH (08:16)
[2020-11-13] MEDS: Folic Acid 1 MG TAB PO SCH (08:16)
[2020-11-13] MEDS: Thiamine 100 MG TAB PO SCH (08:16)
[2020-11-13] MEDS: Furosemide 20 MG TAB PO SCH (08:16)
[2020-11-13] MEDS: Cyanocobalamin (Vitamin B-12) 1,000 MCG TAB PO SCH (08:16)
[2020-11-13] MEDS: Acetaminophen 325 MG TAB PO PRN (22:28)
[2020-11-13] MEDS: Nicotine 7 MG PATCH TOP SCH (22:29)
[2020-11-13] MEDS: Mirtazapine 15 MG TAB PO SCH (22:29)
[2020-11-14] MEDS: Thiamine 100 MG TAB PO SCH (09:04)
[2020-11-14] MEDS: Cyanocobalamin (Vitamin B-12) 1,000 MCG TAB PO SCH (09:04)
[2020-11-14] MEDS: Furosemide 20 MG TAB PO SCH (09:04)
[2020-11-14] MEDS: Multivitamin W/ Minerals 1 TAB PO SCH (09:04)
[2020-11-14] MEDS: Spironolactone 25 MG TAB PO SCH ×2 (09:04→17:18)
[2020-11-14] MEDS: Folic Acid 1 MG TAB PO SCH (09:04)
[2020-11-14] MEDS: Acetaminophen 325 MG TAB PO PRN (09:07)
[2020-11-14] MEDS: Mirtazapine 15 MG TAB PO SCH (21:37)
[2020-11-14] MEDS: Nicotine 7 MG PATCH TOP SCH (21:38)
[2020-11-15] MEDS: Spironolactone 25 MG TAB PO SCH ×2 (08:37→16:56)
[2020-11-15] MEDS: Cyanocobalamin (Vitamin B-12) 1,000 MCG TAB PO SCH (08:38)
[2020-11-15] MEDS: Thiamine 100 MG TAB PO SCH (08:38)
[2020-11-15] MEDS: Furosemide 20 MG TAB PO SCH (08:38)
[2020-11-15] MEDS: Multivitamin W/ Minerals 1 TAB PO SCH (08:38)
[2020-11-15] MEDS: Folic Acid 1 MG TAB PO SCH (08:38)
[2020-11-15] MEDS: Acetaminophen 325 MG TAB PO PRN ×2 (14:32→18:32)
[2020-11-15] MEDS: Nicotine 7 MG PATCH TOP SCH (20:50)
[2020-11-15] MEDS: Mirtazapine 15 MG TAB PO SCH (20:50)
[2020-11-16] MEDS: Thiamine 100 MG TAB PO SCH (09:08)
[2020-11-16] MEDS: Multivitamin W/ Minerals 1 TAB PO SCH (09:08)
[2020-11-16] MEDS: Spironolactone 25 MG TAB PO SCH ×2 (09:08→17:15)
[2020-11-16] MEDS: Furosemide 20 MG TAB PO SCH (09:08)
[2020-11-16] MEDS: Cyanocobalamin (Vitamin B-12) 1,000 MCG TAB PO SCH (09:08)
[2020-11-16] MEDS: Folic Acid 1 MG TAB PO SCH (09:08)
[2020-11-16] MEDS: Acetaminophen 325 MG TAB PO PRN (19:15)
[2020-11-16] MEDS: Nicotine 7 MG PATCH TOP SCH (20:24)
[2020-11-16] MEDS: Mirtazapine 15 MG TAB PO SCH (20:25)
[2020-11-17] MEDS: Multivitamin W/ Minerals 1 TAB PO SCH (08:39)
[2020-11-17] MEDS: Folic Acid 1 MG TAB PO SCH (08:39)
[2020-11-17] MEDS: Furosemide 20 MG TAB PO SCH (08:39)
[2020-11-17] MEDS: Cyanocobalamin (Vitamin B-12) 1,000 MCG TAB PO SCH (08:39)
[2020-11-17] MEDS: Spironolactone 25 MG TAB PO SCH ×2 (08:39→17:13)
[2020-11-17] MEDS: Thiamine 100 MG TAB PO SCH (08:39)
[2020-11-17] MEDS: Acetaminophen 325 MG TAB PO PRN (17:13)
[2020-11-17] MEDS: Nicotine 7 MG PATCH TOP SCH (20:26)
[2020-11-17] MEDS: Mirtazapine 15 MG TAB PO SCH (20:26)
[2020-11-18 05:46] LABS: #Basophils 0.2 thou/uL (0.0-0.2); #Eosinphils 0.3 thou/uL (0.0-0.7); #Monocytes 1.4 thou/uL (0.11-0.59); #Neutrophils 6.9 thou/uL (1.40-6.50); %Basophils 1.7 % (0.0-1.0); %Eosinophils 2.5 % (0.0-10.0); %Lymphocytes 36.2 % (21.0-51.0); %Monocytes 9.9 % (0.0-10.0); %Neutrophils 49.7 % (42.0-75.0); Mean Corpuscular HGB CONC 33.2 g/dL (32.0-36.0); Mean Corpuscular Hemoglobin 33.7 pg (27.0-31.0); Mean Corpuscular Volume 101.6 fL (78.0-98.0); Mean Platelet Volume 7.9 fL (7.4-10.4); Platelet Count 342 thou/uL (130-400); RBC Distribution Width 12.8 % (11.5-14.5); Red Blood Cell (RBC) Count 3.87 mill/uL (4.70-6.10); White Blood Cell (WBC) Count 13.8 thou/uL (4.8-10.8)
[2020-11-18 06:06] LABS: ALT (SGPT) 22 U/L (8-55); AST (SGOT) 35 U/L (5-34); Albumin 2.5 g/dL (3.4-4.8); Alkaline Phosphatase 76 U/L (40-110); Anion Gap 11 mmol/L (10-20); BUN (Urea Nitrogen) 26 mg/dL (8.4-25.7); Bilirubin, Total 1.1 mg/dL (0.2-1.2); Calc. Creatinine Clearance 65 mL/min (70-130); Calcium 8.4 mg/dL (7.8-10.44); Carbon Dioxide 22 mmol/L (23-31); Chloride 111 mmol/L (98-107); Globulin 3.7 g/dL (2.4-3.5); Glucose 103 mg/dL (80-115); Protein, Total 6.2 g/dL (5.8-8.1); Sodium 139 mmol/L (136-145)
[2020-11-18] MEDS: Spironolactone 25 MG TAB PO SCH (09:01)
[2020-11-18] MEDS: Multivitamin W/ Minerals 1 TAB PO SCH (09:02)
[2020-11-18] MEDS: Thiamine 100 MG TAB PO SCH (09:02)
[2020-11-18] MEDS: Furosemide 20 MG TAB PO SCH ×2 (09:02→14:50)
[2020-11-18] MEDS: Folic Acid 1 MG TAB PO SCH (09:02)
[2020-11-18] MEDS: Cyanocobalamin (Vitamin B-12) 1,000 MCG TAB PO SCH (09:02)
[2020-11-18] MEDS: Acetaminophen 325 MG TAB PO PRN ×3 (09:04→21:13)
[2020-11-18] MEDS: Mirtazapine 15 MG TAB PO SCH (21:12)
[2020-11-18] MEDS: Nicotine 7 MG PATCH TOP SCH (21:20)
[2020-11-19] MEDS: Cyanocobalamin (Vitamin B-12) 1,000 MCG TAB PO SCH (08:30)
[2020-11-19] MEDS: Multivitamin W/ Minerals 1 TAB PO SCH (08:30)
[2020-11-19] MEDS: Furosemide 20 MG TAB PO SCH ×2 (08:30→13:58)
[2020-11-19] MEDS: Folic Acid 1 MG TAB PO SCH (08:31)
[2020-11-19] MEDS: Spironolactone 25 MG TAB PO SCH (08:31)
[2020-11-19] MEDS: Thiamine 100 MG TAB PO SCH (08:31)
[2020-11-19] MEDS: Acetaminophen 325 MG TAB PO PRN ×2 (14:01→19:27)
[2020-11-19] MEDS: Mirtazapine 15 MG TAB PO SCH (20:48)
[2020-11-19] MEDS: Nicotine 7 MG PATCH TOP SCH (20:48)
[2020-11-20] MEDS: Thiamine 100 MG TAB PO SCH (08:11)
[2020-11-20] MEDS: Folic Acid 1 MG TAB PO SCH (08:12)
[2020-11-20] MEDS: Cyanocobalamin (Vitamin B-12) 1,000 MCG TAB PO SCH (08:12)
[2020-11-20] MEDS: Multivitamin W/ Minerals 1 TAB PO SCH (08:12)
[2020-11-20] MEDS: Spironolactone 25 MG TAB PO SCH (08:12)
[2020-11-20] MEDS: Furosemide 20 MG TAB PO SCH ×2 (08:12→14:11)
[2020-11-20] MEDS: Acetaminophen 325 MG TAB PO PRN ×3 (08:14→20:17)
[2020-11-20] MEDS ORDERED: Albumin 25% 0 ML ONE (10:55)
[2020-11-20] MEDS ORDERED: Sodium Bicarbonate 2.5 MEQ/5 ML VIAL ONE (10:55)
[2020-11-20] MEDS ORDERED: Lidocaine 1% PF 5 ML VIAL ONE (10:55)
[2020-11-20] MEDS: Mirtazapine 15 MG TAB PO SCH (20:19)
[2020-11-20] MEDS: Nicotine 7 MG PATCH TOP SCH (20:19)
[2020-11-21] MEDS: Spironolactone 25 MG TAB PO SCH (08:42)
[2020-11-21] MEDS: Multivitamin W/ Minerals 1 TAB PO SCH (08:42)
[2020-11-21] MEDS: Furosemide 20 MG TAB PO SCH ×2 (08:42→13:26)
[2020-11-21] MEDS: Thiamine 100 MG TAB PO SCH (08:42)
[2020-11-21] MEDS: Acetaminophen 325 MG TAB PO PRN ×3 (08:42→20:41)
[2020-11-21] MEDS: Folic Acid 1 MG TAB PO SCH (08:42)
[2020-11-21] MEDS: Cyanocobalamin (Vitamin B-12) 1,000 MCG TAB PO SCH (08:42)
[2020-11-21] MEDS: Nicotine 7 MG PATCH TOP SCH (20:39)
[2020-11-21] MEDS: Mirtazapine 15 MG TAB PO SCH (20:41)
[2020-11-22] MEDS: Furosemide 20 MG TAB PO SCH ×2 (08:12→14:17)
[2020-11-22] MEDS: Thiamine 100 MG TAB PO SCH (08:12)
[2020-11-22] MEDS: Cyanocobalamin (Vitamin B-12) 1,000 MCG TAB PO SCH (08:12)
[2020-11-22] MEDS: Multivitamin W/ Minerals 1 TAB PO SCH (08:12)
[2020-11-22] MEDS: Folic Acid 1 MG TAB PO SCH (08:12)
[2020-11-22] MEDS: Spironolactone 25 MG TAB PO SCH (08:12)
[2020-11-22] MEDS: Acetaminophen 325 MG TAB PO PRN ×3 (08:15→20:46)
[2020-11-22] MEDS: Nicotine 7 MG PATCH TD SCH (20:45)
[2020-11-22] MEDS: Mirtazapine 15 MG TAB PO SCH (20:45)
[2020-11-23] MEDS ORDERED: predniSONE 20 MG TAB PO SCH ×2 (08:00)
[2020-11-23] MEDS: Multivitamin W/ Minerals 1 TAB PO SCH (08:26)
[2020-11-23] MEDS: Thiamine 100 MG TAB PO SCH (08:26)
[2020-11-23] MEDS: Folic Acid 1 MG TAB PO SCH (08:26)
[2020-11-23] MEDS: Furosemide 20 MG TAB PO SCH ×2 (08:26→13:20)
[2020-11-23] MEDS: Cyanocobalamin (Vitamin B-12) 1,000 MCG TAB PO SCH (08:26)
[2020-11-23] MEDS: Spironolactone 25 MG TAB PO SCH (08:26)
[2020-11-23] MEDS: Acetaminophen 325 MG TAB PO PRN ×2 (08:29→20:24)
[2020-11-23] MEDS: Mirtazapine 15 MG TAB PO SCH (20:25)
[2020-11-23] MEDS: Nicotine 7 MG PATCH TD SCH (20:26)
[2020-11-24] MEDS: Folic Acid 1 MG TAB PO SCH (08:04)
[2020-11-24] MEDS: Multivitamin W/ Minerals 1 TAB PO SCH (08:04)
[2020-11-24] MEDS: Furosemide 20 MG TAB PO SCH ×2 (08:04→14:55)
[2020-11-24] MEDS: Cyanocobalamin (Vitamin B-12) 1,000 MCG TAB PO SCH (08:04)
[2020-11-24] MEDS: Thiamine 100 MG TAB PO SCH (08:04)
[2020-11-24] MEDS: Spironolactone 25 MG TAB PO SCH (08:04)
[2020-11-24] MEDS: Acetaminophen 325 MG TAB PO PRN ×3 (08:06→20:11)
[2020-11-24] MEDS: Mirtazapine 15 MG TAB PO SCH (20:11)
[2020-11-24] MEDS: Nicotine 7 MG PATCH TD SCH (20:13)
[2020-11-25] MEDS ORDERED: predniSONE 20 MG TAB PO SCH (08:00)
[2020-11-25] MEDS: Furosemide 20 MG TAB PO SCH ×2 (08:24→13:12)
[2020-11-25] MEDS: Cyanocobalamin (Vitamin B-12) 1,000 MCG TAB PO SCH (08:24)
[2020-11-25] MEDS: Multivitamin W/ Minerals 1 TAB PO SCH (08:24)
[2020-11-25] MEDS: Acetaminophen 325 MG TAB PO PRN ×3 (08:24→19:22)
[2020-11-25] MEDS: Spironolactone 25 MG TAB PO SCH (08:24)
[2020-11-25] MEDS: Folic Acid 1 MG TAB PO SCH (08:24)
[2020-11-25] MEDS: Thiamine 100 MG TAB PO SCH (08:30)
[2020-11-25] MEDS: Nicotine 7 MG PATCH TD SCH (20:20)
[2020-11-25] MEDS: Mirtazapine 15 MG TAB PO SCH (20:20)
[2020-11-26] MEDS: Acetaminophen 325 MG TAB PO PRN ×4 (05:36→20:31)
[2020-11-26] MEDS: Spironolactone 25 MG TAB PO SCH (08:37)
[2020-11-26] MEDS: Cyanocobalamin (Vitamin B-12) 1,000 MCG TAB PO SCH (08:37)
[2020-11-26] MEDS: Multivitamin W/ Minerals 1 TAB PO SCH (08:37)
[2020-11-26] MEDS: Folic Acid 1 MG TAB PO SCH (08:37)
[2020-11-26] MEDS: Furosemide 20 MG TAB PO SCH ×2 (08:37→13:33)
[2020-11-26] MEDS: Thiamine 100 MG TAB PO SCH (08:37)
[2020-11-26] MEDS ORDERED: Simethicone Chewable 80 MG TAB PO PRN (14:33)
[2020-11-26] MEDS: Mirtazapine 15 MG TAB PO SCH (20:30)
[2020-11-26] MEDS: Nicotine 7 MG PATCH TD SCH (20:30)
[2020-11-27 08:16] LABS: Anion Gap 13 mmol/L (10-20); BUN (Urea Nitrogen) 22 mg/dL (8.4-25.7); Calc. Creatinine Clearance 67 mL/min (70-130); Calcium 8.3 mg/dL (7.8-10.44); Carbon Dioxide 22 mmol/L (23-31); Chloride 108 mmol/L (98-107); Glucose 99 mg/dL (80-115); Potassium 4.5 mmol/L (3.5-5.1); Sodium 138 mmol/L (136-145)
[2020-11-27] MEDS: Thiamine 100 MG TAB PO SCH (08:16)
[2020-11-27] MEDS: Spironolactone 25 MG TAB PO SCH (08:16)
[2020-11-27] MEDS: Furosemide 20 MG TAB PO SCH ×2 (08:16→14:14)
[2020-11-27] MEDS: Cyanocobalamin (Vitamin B-12) 1,000 MCG TAB PO SCH (08:16)
[2020-11-27] MEDS: Multivitamin W/ Minerals 1 TAB PO SCH (08:16)
[2020-11-27] MEDS: Folic Acid 1 MG TAB PO SCH (08:16)
[2020-11-27] MEDS: Acetaminophen 325 MG TAB PO PRN ×2 (08:17→14:14)
[2020-11-27] MEDS ORDERED: Lidocaine 1% PF 5 ML VIAL ONE (10:22)
[2020-11-27] MEDS ORDERED: Sodium Bicarbonate 2.5 MEQ/5 ML VIAL ONE (10:22)
[2020-11-27] MEDS ORDERED: Albumin 25% 100 ML ONE (10:22)
[2020-11-27] MEDS: Nicotine 7 MG PATCH TD SCH (20:13)
[2020-11-27] MEDS: Mirtazapine 15 MG TAB PO SCH (20:13)
[2020-11-27] MEDS: Emollient 15 oz bottle 450 ML, Triamcinolone Acetonide 200 MG TOP PRN (20:17)
[2020-11-28] MEDS ORDERED: predniSONE 20 MG TAB PO SCH (08:00)
[2020-11-28] MEDS: Cyanocobalamin (Vitamin B-12) 1,000 MCG TAB PO SCH (08:01)
[2020-11-28] MEDS: Furosemide 20 MG TAB PO SCH ×2 (08:01→13:26)
[2020-11-28] MEDS: Folic Acid 1 MG TAB PO SCH (08:01)
[2020-11-28] MEDS: Acetaminophen 325 MG TAB PO PRN ×3 (08:01→20:55)
[2020-11-28] MEDS: Spironolactone 25 MG TAB PO SCH (08:01)
[2020-11-28] MEDS: Multivitamin W/ Minerals 1 TAB PO SCH (08:01)
[2020-11-28] MEDS: Thiamine 100 MG TAB PO SCH (08:01)
[2020-11-28] MEDS: Mirtazapine 15 MG TAB PO SCH (20:46)
[2020-11-28] MEDS: Nicotine 7 MG PATCH TD SCH (20:48)
[2020-11-29] MEDS: Furosemide 20 MG TAB PO SCH ×2 (08:03→15:24)
[2020-11-29] MEDS: Multivitamin W/ Minerals 1 TAB PO SCH (08:03)
[2020-11-29] MEDS: Spironolactone 25 MG TAB PO SCH (08:03)
[2020-11-29] MEDS: Acetaminophen 325 MG TAB PO PRN ×2 (08:03→17:49)
[2020-11-29] MEDS: Cyanocobalamin (Vitamin B-12) 1,000 MCG TAB PO SCH (08:05)
[2020-11-29] MEDS: Thiamine 100 MG TAB PO SCH (08:06)
[2020-11-29] MEDS: Folic Acid 1 MG TAB PO SCH (08:06)
[2020-11-29] MEDS: Emollient 15 oz bottle 450 ML, Triamcinolone Acetonide 200 MG TOP PRN ×2 (17:53→20:31)
[2020-11-29] MEDS: Mirtazapine 15 MG TAB PO SCH (20:27)
[2020-11-29] MEDS: Nicotine 7 MG PATCH TD SCH (20:27)
[2020-11-30] MEDS: Spironolactone 25 MG TAB PO SCH (09:02)
[2020-11-30] MEDS: Cyanocobalamin (Vitamin B-12) 1,000 MCG TAB PO SCH (09:02)
[2020-11-30] MEDS: Multivitamin W/ Minerals 1 TAB PO SCH (09:03)
[2020-11-30] MEDS: Furosemide 20 MG TAB PO SCH ×2 (09:03→13:55)
[2020-11-30] MEDS: Acetaminophen 325 MG TAB PO PRN ×3 (09:03→20:39)
[2020-11-30] MEDS: Thiamine 100 MG TAB PO SCH (09:03)
[2020-11-30] MEDS: Folic Acid 1 MG TAB PO SCH (09:03)
[2020-11-30] MEDS: Mirtazapine 15 MG TAB PO SCH (20:40)
[2020-11-30] MEDS: Nicotine 7 MG PATCH TD SCH (20:41)
[2020-12-01] MEDS ORDERED: predniSONE 20 MG TAB PO SCH (08:00)
[2020-12-01] MEDS: Furosemide 20 MG TAB PO SCH ×2 (08:41→14:59)
[2020-12-01] MEDS: Folic Acid 1 MG TAB PO SCH (08:41)
[2020-12-01] MEDS: Multivitamin W/ Minerals 1 TAB PO SCH (08:41)
[2020-12-01] MEDS: Cyanocobalamin (Vitamin B-12) 1,000 MCG TAB PO SCH (08:41)
[2020-12-01] MEDS: Spironolactone 25 MG TAB PO SCH (08:41)
[2020-12-01] MEDS: Thiamine 100 MG TAB PO SCH (08:41)
[2020-12-01] MEDS: Acetaminophen 325 MG TAB PO PRN ×3 (08:52→19:41)
[2020-12-01] MEDS: Mirtazapine 15 MG TAB PO SCH (21:32)
[2020-12-01] MEDS: Nicotine 7 MG PATCH TD SCH (21:32)
[2020-12-02] MEDS: Multivitamin W/ Minerals 1 TAB PO SCH (08:52)
[2020-12-02] MEDS: Thiamine 100 MG TAB PO SCH (08:52)
[2020-12-02] MEDS: Furosemide 20 MG TAB PO SCH ×2 (08:52→14:19)
[2020-12-02] MEDS: Acetaminophen 325 MG TAB PO PRN ×4 (08:52→21:15)
[2020-12-02] MEDS: Spironolactone 25 MG TAB PO SCH (08:52)
[2020-12-02] MEDS: Cyanocobalamin (Vitamin B-12) 1,000 MCG TAB PO SCH (08:52)
[2020-12-02] MEDS: Folic Acid 1 MG TAB PO SCH (08:52)
[2020-12-02 10:15] LABS: SARS-CoV-2 NAA Rapid Test Not Detected (NotDetected)
[2020-12-02 10:25] VITALS: BMI 20.9
[2020-12-02 13:02] LABS: Hemoglobin 12.6 g/dL (14.0-18.0); Mean Corpuscular HGB CONC 32.7 g/dL (32.0-36.0); Mean Corpuscular Hemoglobin 32.9 pg (27.0-31.0); Mean Corpuscular Volume 100.7 fL (78.0-98.0); Mean Platelet Volume 7.3 fL (7.4-10.4); Platelet Count 410 thou/uL (130-400); RBC Distribution Width 12.4 % (11.5-14.5); Red Blood Cell (RBC) Count 3.83 mill/uL (4.70-6.10)
[2020-12-02 13:03] LABS: Lactic Acid 1.2 mmol/L (0.5-2.2)
[2020-12-02 13:07] LABS: AST (SGOT) 37 U/L (5-34); Albumin 2.4 g/dL (3.4-4.8); Alkaline Phosphatase 86 U/L (40-110); Anion Gap 12 mmol/L (10-20); BUN (Urea Nitrogen) 24 mg/dL (8.4-25.7); Bilirubin, Total 0.8 mg/dL (0.2-1.2); Calc. Creatinine Clearance 67 mL/min (70-130); Calcium 8.3 mg/dL (7.8-10.44); Carbon Dioxide 20 mmol/L (23-31); Chloride 110 mmol/L (98-107); Glucose 105 mg/dL (80-115); Potassium 4.6 mmol/L (3.5-5.1); Protein, Total 6.4 g/dL (5.8-8.1); Sodium 137 mmol/L (136-145)
[2020-12-02 13:39] LABS: Band 1 % (5-11); Lymphocytes 35 % (21-51)
[2020-12-02 13:40] LABS: Anisocytosis SLIGHT = 6-15 cells (100X) (0-5/hpf); Monocytes 7 % (0-10); Neutrophil 57 % (42-75); Platelet Morphology Comment Appears Adequate
[2020-12-02 14:00] LABS: ALT (SGPT) 19 U/L (8-55)
[2020-12-02 14:04] LABS: Bilirubin Negative (Negative); Blood, Urine Negative (Negative); Clarity Clear (Clear); Glucose, Urine (Dipstick) Negative (Negative); Ketone, Urine Negative (Negative); Leukocyte Negative (Negative); Nitrite Negative (Negative); Protein, Urine (Dipstick) Negative (Neg-Trace); Urobilinogen 0.2 mg/dL (Less than 2); pH, Urine 5.5 (5.0-9.0)
[2020-12-02 14:06] LABS: Urine Culture Reflex No No
[2020-12-02] MEDS: Nicotine 7 MG PATCH TD SCH (21:14)
[2020-12-02] MEDS: Mirtazapine 15 MG TAB PO SCH (21:15)
[2020-12-03] MEDS: Acetaminophen 325 MG TAB PO PRN ×4 (01:08→19:37)
[2020-12-03] MEDS: Folic Acid 1 MG TAB PO SCH (08:05)
[2020-12-03] MEDS: Spironolactone 25 MG TAB PO SCH (08:05)
[2020-12-03] MEDS: Thiamine 100 MG TAB PO SCH (08:05)
[2020-12-03] MEDS: Furosemide 20 MG TAB PO SCH ×2 (08:05→14:24)
[2020-12-03] MEDS: Cyanocobalamin (Vitamin B-12) 1,000 MCG TAB PO SCH (08:05)
[2020-12-03] MEDS: Multivitamin W/ Minerals 1 TAB PO SCH (08:05)
[2020-12-03] MEDS: Mirtazapine 15 MG TAB PO SCH (20:46)
[2020-12-03] MEDS: Nicotine 7 MG PATCH TD SCH (20:46)
[2020-12-04] MEDS ORDERED: predniSONE 5 MG TAB PO SCH (08:00)
[2020-12-04] MEDS: Furosemide 20 MG TAB PO SCH ×2 (08:25→13:18)
[2020-12-04] MEDS: Acetaminophen 325 MG TAB PO PRN ×2 (08:25→17:55)
[2020-12-04] MEDS: Spironolactone 25 MG TAB PO SCH (08:25)
[2020-12-04] MEDS: Thiamine 100 MG TAB PO SCH (08:26)
[2020-12-04] MEDS: Multivitamin W/ Minerals 1 TAB PO SCH (08:26)
[2020-12-04] MEDS: Cyanocobalamin (Vitamin B-12) 1,000 MCG TAB PO SCH (08:26)
[2020-12-04] MEDS: Folic Acid 1 MG TAB PO SCH (08:26)
[2020-12-04] MEDS: Mirtazapine 15 MG TAB PO SCH (20:10)
[2020-12-04] MEDS: Nicotine 7 MG PATCH TD SCH (20:10)
[2020-12-05] MEDS: Cyanocobalamin (Vitamin B-12) 1,000 MCG TAB PO SCH (08:59)
[2020-12-05] MEDS: Furosemide 20 MG TAB PO SCH ×4 (08:59→14:56)
[2020-12-05] MEDS: Folic Acid 1 MG TAB PO SCH (08:59)
[2020-12-05] MEDS: Multivitamin W/ Minerals 1 TAB PO SCH (08:59)
[2020-12-05] MEDS: Thiamine 100 MG TAB PO SCH (08:59)
[2020-12-05] MEDS: Acetaminophen 325 MG TAB PO PRN (08:59)
[2020-12-05] MEDS: Spironolactone 25 MG TAB PO SCH (08:59)
[2020-12-05 09:04] VITALS: BP 144/80; TEMP 98.5
--- NOTE | 2020-12-06 16:16 | PQF ---
CLINICAL DOCUMENTATION CLARIFICATION FORM: Dear : Noemy Castro MD Date / Time: 12/06/2020 Please exercise your independent, professional judgment in responding to the clarification form. Clinical indicators are provided on the bottom of this form for your review Please check appropriate box(es): [ ] Protein Calorie Malnutrition: [ ] Mild [ ] Moderate [ ] Severe [ ] Other Malnutrition (please specify) [ ] Underweight without malnutrition [ ] Cachexia [ ] Other diagnosis (Please specify if any) [ ] Unable to determine In addition, please specify: Present on Admission (POA): [ ] Yes [ ] No [ ] Unable to determine Physician Signature: Date/Time: For continuity of documentation, please document condition throughout progress notes and discharge summary. Thank You. To be completed by CDI/Coding staff for physician review: Present Clinical Indicators - Signs / Symptoms / Labs Results and Location in Medical Record [x] Malnutrition, Failure to Thrive, Cachexia Progress notes on 10/22 [x] BMI of 20.9 Registered dietitian on 12/02 Two or More of the Following ASPEN Criteria: [ ] Unintentional Insufficient Energy Intake [ ] Weight Loss [x] Temporal muscl, fat & muscle wasting Registered dietitian on 12/02 [x] Albumin-2.1 Laboratory on 10/21 [x] Calcium 7.5L Laboratory on 10/07 [ ] Diminished Handgrip Strength Present Risk Factors Results and Location in Medical Record [ ] Change in appetite / nausea / vomiting / diarrhea [ ] Inability to consume adequate caloric intake [x] Chronic illness , cirrhosis H&P on 10/04 [x] Aged person 70 yrs H&P on 10/04 [ ] PEG tube [ ] Short gut syndrome Present Treatments Results and Location in Medical Record [x] Dietary consult Registered dietitian on 12/02 [x] We will continue multivitamins to assist with the patient malnutrition Progress notes on 10/22 [x] Multivitamin 1tab Po Medication on 10/07 [ ] Assistance with feeding [ ] Appetite stimulant - medication CDS/Casual Shoe Inspector Signature: AAS Phone #: Date/Time: 12/06/2020 Moderate Malnutrition (in acute illness) ? Energy Intake: <75% of estimated energy requirement for > 7 days ? Weight Loss: 1-2%/1 week; 5%/ 1 month; 7.5%/3 months ? Other: mild body fat loss; mild muscle mass loss; mild fluid accumulation; Severe Malnutrition (in acute illness) ? Energy Intake: ? 50% of estimated energy requirement for ? 5 days ? Weight Loss: >2%/1 week; >5%/1 month; >7.5%/3 months ? Other: moderate body fat loss; moderate muscle mass loss; moderate- severe fluid accumulation; measurably reduced set decorator strength Moderate Malnutrition (in chronic illness) ? Energy Intake: <75% of estimated energy requirement for ?1 month ? Weight Loss: 5%/1 month; 7.5%/3 months; 10%/6 months; 20%/1 year ? Other: mild body fat loss; mild muscle mass loss; mild fluid accumulation Severe Malnutrition (in chronic illness) ? Energy Intake: ?75% of estimated energy requirement for ?1 month ? Weight Loss: >5%/1 month; >7.5%/3 months; >10%/6 months; >20%/1 year ? Other: severe body fat loss; severe muscle mass loss; severe fluid accumulation; measurably reduced set decorator strength This is a permanent part of the Medical Record MTDD
--- NOTE | 2020-12-13 15:14 | DIS ---
DATE OF ADMISSION: 10/04/2020 DATE OF DISCHARGE: 12/05/2020 REASON FOR ADMISSION: Deconditioning, general weakness after recent hospitalization. FINAL DIAGNOSES: 1. Decompensated liver cirrhosis with ascites. 2. Alcoholic cirrhosis with ascites requiring paracentesis q.weekly. 3. Hypoalbuminemia. 4. Depression and anxiety. 5. Hypertension. 6. Hyponatremia, chronic, asymptomatic. 7. Hyperkalemia, resolved. 8. Physical deconditioning. 9. Unsteady gait. 10. History of fall. 11. History of chronic tobacco use. 12. History of chronic alcohol abuse. 13. Anorexia with weight loss, stable. DISPOSITION: Home with family in [place], pending senior care placement approval. CONDITION ON DISCHARGE: Stable. DISCHARGE INSTRUCTIONS: 1. Continue paracentesis at [facility] every Wednesday as scheduled. 2. Continue albumin supplement every paracentesis appointment. To give 3 g per 3 L of ascitic fluid aspirated. 3. Diet, regular. 4. Activity, to use rolling walker at all times. Fall precautions. 5. Follow up with new PCP in [place], Dr. Presley Mcdaniels on 12/24/2020, at 8:30 a.m. 6. Follow up with Dr. Stanley Edwards, logistics program manager on 12/26/2020 at 1420 hours. MEDICATIONS: 1. Spironolactone 50 mg p.o. q.a.m. 2. Folic acid 1 mg p.o. daily. 3. Furosemide 20 mg p.o. b.i.d. at 9 a.m. and 2 p.m. 4. Polyethylene glycol 17 g p.o. daily p.r.n. for constipation. 5. 7 mg transdermal at 8 p.m. to complete 30-day course. 6. Pantoprazole 40 mg p.o. daily. 7. Mirtazapine 15 mg p.o. daily. 8. Thiamine 100 mg p.o. daily. HISTORY OF PRESENT ILLNESS AND HOSPITAL COURSE: Mr. Smallwood is a 70-year-old male with significant history of chronic alcohol abuse, chronic tobacco use, who presented initially at [facility] for abdominal pain, falling, and imbalance. The patient had been generally weak prior to admission. The patient was diagnosed with cirrhosis approximately few weeks before this admission. He had never been on any medicine nor seen a GI doctor prior to the hospitalization. On further examination at [facility], CT of his abdomen and pelvis revealed moderate ascites. Chest x-ray did not show any acute processes. CT of the head showed chronic changes, but no acute findings. The patient was subsequently admitted and treated appropriately under the consultation of logistics program manager. He has had the initial paracentesis [facility]. He was started on low-dose diuretics. He also received an albumin infusion and IVF hydration. Eventually, his acute renal injury has improved. He was maintained on low-dose diuretic and subsequently transferred to [facility] secondary to severe debility. In [place], the patient had marked improvement with his overall functional status and mobility. He was walking more than 200+ feet using his rolling walker prior to discharge. During his rehab course, he was also noted to have anorexia with significant weight loss, depressive symptoms, and anxiety. The patient was started on low-dose mirtazapine. His overall appetite and oral consumption markedly improved prior to discharge and overall mood significantly improved as well. While in rehab, the patient continued to have evidence of volume overload requiring paracentesis in a weekly basis. He will continue paracentesis as scheduled every Wednesday at [facility] until further recommendations from the logistics program manager. The patient's sister, Breanne, who serves as the patient's MPOA/surrogate decision maker has been involved in the patient's care throughout the course. It was a mutual decision of the patient and the family that he needs to go to senior care as nobody could take care of the patient at home. After waiting for several weeks, the patient had a hard time getting senior care placement as the options are very limited to the place where his sister lives. It was then the mutual decision of the family that the patient will go home to cousin's place in [place] and cousin with the spouse will be taking care of the patient, pending senior care placement in [place], [place], where his sister lives. Overall, his blood pressure tolerated his current diuretics. He is on both spironolactone and Lasix. He will complete his for another 15 days while at home. He is recommended to continue nutritional supplements including folic acid, thiamine, and multivitamins. We have arranged followup appointments with GI and new PCP in [place] per patient's family's request. On 12/05/2020, the patient was discharged in a stable condition. The weekly paracentesis schedule was arranged every Wednesday at [facility]. Prescription for outpatient procedure has been faxed to [facility] prior to discharge. Vital signs prior to discharge; blood pressure 144/80, temperature 98.5, pulse 94, respirations 18, O2 saturation 97% on room air. Weight 126 pounds and 2 ounces. Height 5 feet 5 inches. Time spent on this discharge, 35 minutes in examining the patient, coordinating care. Job ID: [id number]
== END 2020-12-05 16:05 | disposition home or self-care (01) | DRG 948 ==
LOC: MADMS 17:20
PROVIDERS: ADMIT Family Medicine; ATTEND Family Medicine
DX: R53.81 Other malaise (principal); N17.9 Acute kidney failure, unspecified; E87.1 Hypo-osmolality and hyponatremia; R18.8 Other ascites; E46 Unspecified protein-calorie malnutrition; Z66 Do not resuscitate; F10.10 Alcohol abuse, uncomplicated; F17.200 Nicotine dependence, unspecified, uncomplicated; E87.5 Hyperkalemia; E88.09 Other disorders of plasma-protein metabolism, not elsewhere classified; R26.81 Unsteadiness on feet; F32.9 Major depressive disorder, single episode, unspecified; K74.60 Unspecified cirrhosis of liver; Z20.822 Contact with and (suspected) exposure to COVID-19; Z79.899 Other long term (current) drug therapy; Z68.21 Body mass index [BMI] 21.0-21.9, adult; N18.9 Chronic kidney disease, unspecified; D72.829 Elevated white blood cell count, unspecified; F41.9 Anxiety disorder, unspecified
CPT/HCPCS: 0240U; 36415; 80048; 80053; 81001; 82140; 83605; 85007; 85025; 85027; 85610; 85730; 87040; 93975; J1650; J3301; P9047

== ENCOUNTER 2022-03-09 11:07 | Emergency (ER) | payer MEDICARE ==
[2022-03-09] MEDS ORDERED: Morphine 4 MG/ML VIAL ONE ×2 (11:41→14:30)
[2022-03-09 11:47] LABS: #Basophils 0.2 thou/uL (0.0-0.2); #Eosinphils 0.5 thou/uL (0.0-0.7); #Lymphocytes 4.2 thou/uL (1.20-3.40); #Monocytes 0.7 thou/uL (0.11-0.59); #Neutrophils 7.4 thou/uL (1.40-6.50); %Basophils 1.4 % (0.0-1.0); %Eosinophils 3.7 % (0.0-10.0); %Lymphocytes 32.5 % (21.0-51.0); %Monocytes 5.1 % (0.0-10.0); %Neutrophils 57.3 % (42.0-75.0); Hemoglobin 15.2 g/dL (14.0-18.0); Mean Corpuscular HGB CONC 31.4 g/dL (32.0-36.0); Mean Corpuscular Volume 92.3 fL (78.0-98.0); Mean Platelet Volume 10.5 fL (7.4-10.4); Platelet Count 391 thou/uL (130-400); RBC Distribution Width 12.9 % (11.5-14.5); Red Blood Cell (RBC) Count 5.24 mill/uL (4.70-6.10); White Blood Cell (WBC) Count 12.8 thou/uL (4.8-10.8)
[2022-03-09 11:58] LABS: Prothrombin Time 13.5 sec (12.0-14.7)
[2022-03-09 11:59] LABS: PTT 43.1 sec (22.9-36.1)
[2022-03-09 12:02] LABS: Bilirubin Negative (Negative); Blood, Urine Negative (Negative); Clarity Clear (Clear); Glucose, Urine (Dipstick) Negative (Negative); Ketone, Urine Negative (Negative); Leukocyte Negative (Negative); Nitrite Negative (Negative); Protein, Urine (Dipstick) 30 mg/dL (Neg-Trace); Specific Gravity, Urine 1.015 (1.005-1.030); pH, Urine 7.5 (5.0-9.0)
[2022-03-09 12:04] LABS: ALT (SGPT) 12 U/L (8-55); AST (SGOT) 24 U/L (5-34); Albumin 3.4 g/dL (3.4-4.8); Alkaline Phosphatase 97 U/L (40-110); Anion Gap 13 mmol/L (10-20); BUN (Urea Nitrogen) 13 mg/dL (8.4-25.7); Calc. Creatinine Clearance 0 mL/min (70-130); Calcium 9.1 mg/dL (7.8-10.44); Carbon Dioxide 24 mmol/L (23-31); Chloride 108 mmol/L (98-107); Globulin 3.9 g/dL (2.4-3.5); Glucose 102 mg/dL (83-110); Lipase 16 U/L (8-78); Potassium 4.4 mmol/L (3.5-5.1); Protein, Total 7.3 g/dL (5.8-8.1); Sodium 141 mmol/L (136-145)
[2022-03-09 12:08] LABS: Bacteria/HPF Rare-Few HPF (None Seen); RBC/HPF 0-3 HPF (0-3); Squamous Epithelial 0-3 HPF (0-3); WBC/HPF 0-3 HPF (0-3)
[2022-03-09] MEDS ORDERED: Iopamidol 370 76% 100 ML VIAL ONE (12:17)
== END 2022-03-09 16:42 | disposition short-term general hospital (02) ==
LOC: MADERS 11:07
DX: I77.4 Celiac artery compression syndrome (principal); K83.9 Disease of biliary tract, unspecified; R00.1 Bradycardia, unspecified; F17.210 Nicotine dependence, cigarettes, uncomplicated; Z79.899 Other long term (current) drug therapy
CPT/HCPCS: 36415; 71045; 74177; 76705; 80053; 81003; 81015; 83605; 83690; 84484; 85025; 85610; 85730; 93005; 94760; 96374; 96376; J2270; Q9967

== ENCOUNTER 2023-02-05 14:11 | Emergency (ER) | payer MEDICARE ==
[2023-02-05 15:16] LABS: Bilirubin Negative (Negative); Blood, Urine Negative (Negative); Clarity Clear (Clear); Glucose, Urine (Dipstick) Negative (Negative); Ketone, Urine Negative (Negative); Leukocyte Negative (Negative); Nitrite Negative (Negative); Protein, Urine (Dipstick) Negative (Neg-Trace); pH, Urine 6.5 (5.0-9.0)
== END 2023-02-05 15:56 | disposition home or self-care (01) ==
LOC: MADERS 14:11
DX: I10 Essential (primary) hypertension (principal); F17.210 Nicotine dependence, cigarettes, uncomplicated
CPT/HCPCS: 36415; 81003; 83880; 85379; 99283